=== PATIENT | male | born 1950 | race Caucasian/White ===

== ENCOUNTER → 2016-05-31 | Outpatient (CLI) | payer SELFPAY ==
[~2016-05-31] MED LIST: MORPHINE SULFATE 10 MG/ML INJ IV PUSH ONE
== END ==
LOC: HEDF 19:07
DX: T24.302A Burn of third degree of unspecified site of left lower limb, except ankle and foot, initial encounter (principal); T24.301A Burn of third degree of unspecified site of right lower limb, except ankle and foot, initial encounter; F17.210 Nicotine dependence, cigarettes, uncomplicated; X08.8XXA Exposure to other specified smoke, fire and flames, initial encounter; Y93.89 Activity, other specified; Y92.821 Forest as the place of occurrence of the external cause; Y99.8 Other external cause status
CPT/HCPCS: A0431; A0436; J2270